=== PATIENT | male | born 1965 | race Caucasian/White ===

== ENCOUNTER 2017-02-24 17:02 | Emergency (ER) | payer MEDICARE, MEDICAID ==
[2017-02-24 17:20] VITALS: BP 137/73
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
== END 2017-02-24 18:28 | disposition home or self-care (01) ==
LOC: UCCORT 17:02
DX: S90.31XA Contusion of right foot, initial encounter (principal); W22.03XA Walked into furniture, initial encounter; Y93.9 Activity, unspecified; Y92.9 Unspecified place or not applicable
CPT/HCPCS: 99211; G0463

== ENCOUNTER 2017-03-02 12:10 | Emergency (ER) | payer MEDICARE, MEDICAID ==
[2017-03-02 13:10] VITALS: BP 122/83
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
--- NOTE | 2017-03-02 14:06 | RAD ---
INDICATION: Right shoulder pain. TECHNIQUE: 3 views of the right shoulder were obtained. FINDINGS: The bones are in normal alignment. No fracture is seen. There is mild osteoarthritic change in the glenohumeral joint. IMPRESSION: MILD OSTEOARTHRITIC CHANGE.
--- NOTE | 2017-03-02 14:11 | RAD ---
INDICATION: Right rib cage pain. COMPARISON: Comparison is made with a prior chest x-ray study from April 21, 2013. TECHNIQUE: Dual-energy PA and lateral views of the chest were obtained. FINDINGS: The heart is within normal limits in size. Mediastinal and hilar contours appear within normal limits. The lungs are underinflated. There is minimal atelectasis at the left lung base. The lungs are otherwise clear. No pleural effusion or pneumothorax is seen. There is mild pleural thickening present laterally within the right hemithorax possibly from a rib fracture. Consider rib detail films for further evaluation. IMPRESSION: MILD RIGHT PLEURAL THICKENING LATERALLY POSSIBLY FROM RIB A FRACTURE CONSIDER RIB FILMS FOR FURTHER EVALUATION.
--- NOTE | 2017-03-02 14:50 | RAD ---
INDICATION: Right rib cage pain. TECHNIQUE: 3 views of the right ribs were obtained. FINDINGS: There is a faint radiolucent line extending through the inferior aspect of the posterior lateral right sixth rib possibly representing a nondisplaced fracture. This is only seen in one view. No other fractures are seen. IMPRESSION: POSSIBLE NONDISPLACED FRACTURE OF THE RIGHT POSTEROLATERAL SIXTH RIB.
== END 2017-03-02 16:00 | disposition home or self-care (01) ==
LOC: UCCORT 12:10
DX: M25.511 Pain in right shoulder (principal); S29.8XXA Other specified injuries of thorax, initial encounter; S40.021A Contusion of right upper arm, initial encounter; X58.XXXA Exposure to other specified factors, initial encounter; Y93.9 Activity, unspecified; Y92.199 Unspecified place in other specified residential institution as the place of occurrence of the external cause; E03.9 Hypothyroidism, unspecified; I10 Essential (primary) hypertension; K21.9 Gastro-esophageal reflux disease without esophagitis; F32.9 Major depressive disorder, single episode, unspecified
CPT/HCPCS: 71020; 99212; G0463

== ENCOUNTER 2017-04-28 18:21 | Emergency (ER) | payer MEDICARE, MEDICAID ==
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
[2017-04-28 18:50] VITALS: BP 114/75
== END 2017-04-28 18:45 | disposition home or self-care (01) ==
LOC: UCCORT 18:21
DX: Z04.1 Encounter for examination and observation following transport accident (principal); F79 Unspecified intellectual disabilities
CPT/HCPCS: 99211; G0463

== ENCOUNTER 2019-12-02 21:41 | Emergency (ER) | payer MEDICARE, MEDICAID ==
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
--- OUTSIDE RECORDS SUMMARY | 2019-12-02 21:48 | XMS REPORT | Continuity of Care Document ---
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 Onset: 09/10/2018 prostate Chest pain Zack Graham M.D., Onset: 11/19/2014 [facility] Electrocardiogram abnormal Zack Graham M.D., Onset: 11/19/2014 [facility] Social History Type Date Description Comments Sex Unknown Tobacco Use Start: Unknown Never Smoked Cigarettes ETOH Use Never used alcohol Tobacco Use Start: Unknown End: Unknown Patient is a former smoker Recreational Drug Use Denies Drug Use Smoking Status Reviewed: 09/06/18 Patient is a former smoker Allergies, Adverse Reactions, Alerts Active Allergies Reaction Severity Comments Date Meningococcal Vaccines VOMITTING AND FEVER 09/10/2018 Inactive Allergies NKDA 11/12/2014 Medications Active Medications SIG Qnty Indications Ordering Provider Date Amiloride HCL 1 by mouth 90tabs Unknown 5mg Tablets every day Omeprazole 2 Tabs Via Peg 30caps Unknown 20mg Capsules bid DR [place] 1 by mouth 30tabs Unknown 15mg Tablets every night Sertraline HCL 1 by mouth 30tabs Unknown 100mg every day Tablets Divalproex Sodium 2 cap po tid Unknown 125mg Via Gtube Capsule Synthroid 1 by mouth Unknown 112mcg Tablets every day vi aG Tube Oscal 500/200 D-3 1 tab by mouth Unknown tid a day [id number] Tablets Vitamin D3 Super 1 by mouth Unknown Strength every day 2000Unit Capsules Immunizations Description No Information Available Vital Signs Date Vital Result Comment 09/29/2019 1:14pm BP Systolic 112 mmHg BP Diastolic 82 mmHg Body Temperature 96.0 F Heart Rate 66 /min Height 66 inches 5'6" Weight 149.00 lb BMI (Body Mass Index) 24.0 kg/m2 BSA (Body Surface Area) 1.76 m2 [place] body weight in kilograms 64 kg O2 % BldC Oximetry 97 % 09/10/2018 11:16am BP Systolic 110 mmHg BP Diastolic 69 mmHg Body Temperature 97.3 F Heart Rate 68 /min Respiratory Rate 16 /min Height 68 inches 5'8" Weight 145.00 lb Per paper work/ pt present in wheel chair Pain Level 0 BMI (Body Mass Index) 22.0 kg/m2 BSA (Body Surface Area) 1.78 m2 [place] body weight in kilograms 70 kg O2 % BldC Oximetry 93 % Results Test Acquired Date Facility Test Result H/L Range Note Basic Metabolic 06/06/2019 [facility] Glucose 120 mg/dL High 74-106 1 Panel [address] [place], [place] [id number] [phone] BUN 27 mg/dL High 7-18 Creatinine 1.0 mg/dL Normal 0.6-1.3 Glom Filtration Rate, Estimate >60 mL/min >60 If >60 mL/min >60 2 BUN/Creat 27.0 ratio Sodium 152 mmol/L High 136-145 Potassium 3.9 mmol/L Normal 3.5-5.1 Chloride 121 mmol/L Critical high 98-107 Carbon Dioxide 25 mmol/L Normal 21-32 Anion Gap 6 mEq/L Low 8-16 Calcium 9.3 mg/dL Normal 8.5-10.1 Basic Metabolic Panel 06/05/2019 [facility] Glucose 110 mg/dL High 74-106 [address] [place], [place] [id number] [phone] BUN 25 mg/dL High 7-18 Creatinine 1.0 mg/dL Normal 0.6-1.3 Glom Filtration Rate, Estimate >60 mL/min >60 If >60 mL/min >60 3 BUN/Creat 25.0 ratio Sodium 151 mmol/L High 136-145 Potassium 4.0 mmol/L Normal 3.5-5.1 Chloride 121 mmol/L Critical high 98-107 Carbon Dioxide 24 mmol/L Normal 21-32 Anion Gap 6 mEq/L Low 8-16 Calcium 9.0 mg/dL Normal 8.5-10.1 CBC W/Automated 06/05/2019 [facility] White Blood 9.1 K/uL Normal 3.4-10.[address] [place] [address] [phone] Red Blood Count 3.29 M/uL Low 4.20-5.80 Hemoglobin 11.9 gm/dL Low 12.8-17.0 Hematocrit 34.5 % Low 38.0-48.0 Mean Cell Volume 104.9 fl High 80.0-96.0 Mean Corpuscular HGB 36.2 pg High 27.0-33.0 Mean Corpuscular HGB Conc 34.5 g/dL Normal 31.7-36.0 Platelet Count 67 K/uL Low 155-360 Red Cell Distri Width SD 49.6 fl Normal 36-51 Red Cell Distri Width %CV 13.0 % Normal 11.6-15.8 Mean Platelet Volume 13.7 fl High 6.6-10.6 Neut% 83.6 % High 33.0-73.0 Lymph % 9.4 % Low 20.0-42.0 [place] % 6.3 % Normal 0.0-10.0 Eo% 0.0 % Normal 0.0-6.6 Bas% 0.2 % Normal 0.0-1.1 Immature Grans 0.5 % Normal 0.0-5.0 NRBC % 0.0 /100WBC < 10/ 100 WBC Neut# 7.61 K/uL High 1.8-7.0 Lymph # 0.86 K/uL Low 1.0-4.0 [place] # 0.57 K/uL Normal 0.0-0.8 Eos # 0.00 K/uL Normal 0.0-0.5 Baso # 0.02 K/uL Normal 0.0-0.1 Immature Grans Absolute 0.05 K/uL NRBC # 0.00 K/uL Lactic Acid 06/05/2019 [facility] Lactic Acid 1.4 mmol/L Normal 0.4-1.[address] [place] [address] [phone] Lab Reflex >2.0 for Sepsis? N Basic Metabolic Panel 06/05/2019 [facility] Glucose 108 mg/dL High 74-106 [address] [place], [place] [id number] [phone] BUN 25 mg/dL High 7-18 Creatinine 0.9 mg/dL Normal 0.6-1.3 Glom Filtration Rate, Estimate >60 mL/min >60 If >60 mL/min >60 4 BUN/Creat 27.7 ratio Sodium 151 mmol/L High 136-145 Potassium 4.4 mmol/L 3.5-5.1 Chloride 122 mmol/L Critical high 98-107 Carbon Dioxide 25 mmol/L Normal 21-32 Anion Gap 4 mEq/L Low 8-16 Calcium 8.3 mg/dL Low 8.5-10.1 Lactic Acid 06/05/2019 [facility] Lactic Acid 2.7 mmol/L Critical 0.4-1.9 [address] [place] [address] [phone] Lab Reflex >2.0 for Sepsis? N Lactic Acid 06/04/2019 [facility] Lactic Acid 2.9 mmol/L Critical 0.4-1.9 [address] [place] [address] [phone] Lab Reflex >2.0 for Sepsis? Y Laboratory 06/04/2019 [facility] Lactic 2.5 mmol/L Critical 0.4-1.9 test finding [address] [place] [address] [phone] Ua RFX Micro & 06/04/2019 [facility] Urine YELLOW Yellow Culture II [address] [place] [address] [phone] Urine Clarity CLEAR Clear Urine Glucose - Dipstick NEGATIVE mg/dL Negative Urine Bilirubin - Dipstick NEGATIVE Negative Urine Ketone NEGATIVE mg/dL Negative Urine Specific [place] 1.010 Normal 1.010-1.030 Urine Blood NEGATIVE 0-2 Urine PH 7.5 Normal 6.5-7.5 Urine Protein - Dipstick NEGATIVE mg/dL Negative Urine Urobilinogen - Dipstick 0.2 E.U./dL Normal 0.2-1.0 Urine Nitrite - Dipstick NEGATIVE Negative Urine Leuk Esterase NEGATIVE Negative Source: URINE, CLEAN CAT <SEE NOTE> 5 Comprehensive 06/04/2019 [facility] Glucose 86 mg/dL Normal 74-106 Metabolic Panel [address] [place] [address] [phone] BUN 36 mg/dL High 7-18 Creatinine 1.2 mg/dL Normal 0.6-1.3 Glom Filtration Rate, Estimate >60 mL/min >60 If >60 mL/min >60 6 BUN/Creat 30.0 ratio Sodium 141 mmol/L Normal 136-145 Potassium 3.6 mmol/L Normal 3.5-5.1 Chloride 108 mmol/L High 98-107 Carbon Dioxide 24 mmol/L Normal 21-32 Anion Gap 9 mEq/L Normal 8-16 Calcium 9.1 mg/dL Normal 8.5-10.1 Total Protein 6.6 g/dL Normal 6.4-8.2 Albumin 2.9 g/dL Low 3.4-5.0 Globulin 3.7 g/dL Normal 1.9-4.3 Alb/Glob 0.8 ratio Bilirubin,Total 0.9 mg/dL Normal 0.2-1.0 Sgot/Ast 29 U/L Normal 15-37 SGPT/Alt 37 U/L Normal 12-78 Alkaline Phosphatase 121 U/L High 45-117 Blood Culture 06/04/2019 [facility] Blood Culture NO GROWTH: FINAL [address] Aerobic <SEE NOTE> [place] [address] [phone] Blood Culture Anaerobic NO GROWTH: FINAL <SEE NOTE> 8 Blood Culture 06/04/2019 [facility] Blood Culture NO GROWTH: FINAL [address] Aerobic <SEE NOTE> [place] [address] [phone] Blood Culture Anaerobic NO GROWTH: FINAL <SEE NOTE> 10 1 SEPSIS / PNEUMONIA 2 Note: Persistent reduction for 3 months or more in an eGFR <60 mL/min/1.73 m2 defines CKD. Patients with eGFR values >/=60 mL/min/1.73 m2 may also have CKD if evidence of persistent proteinuria is present. The original MDRD equation for estimated GFR is not valid for patients less than 18 years of age. Additional information may be found at [email or web address]. 3 Note: Persistent reduction for 3 months or more in an eGFR <60 mL/min/1.73 m2 defines CKD. Patients with eGFR values >/=60 mL/min/1.73 m2 may also have CKD if evidence of persistent proteinuria is present. The original MDRD equation for estimated GFR is not valid for patients less than 18 years of age. Additional information may be found at [email or web address]. 4 Note: Persistent reduction for 3 months or more in an eGFR <60 mL/min/1.73 m2 defines CKD. Patients with eGFR values >/=60 mL/min/1.73 m2 may also have CKD if evidence of persistent proteinuria is present. The original MDRD equation for estimated GFR is not valid for patients less than 18 years of age. Additional information may be found at [email or web address]. 5 URINE, CLEAN CATCH 6 Note: Persistent reduction for 3 months or more in an eGFR <60 mL/min/1.73 m2 defines CKD. Patients with eGFR values >/=60 mL/min/1.73 m2 may also have CKD if evidence of persistent proteinuria is present. The original MDRD equation for estimated GFR is not valid for patients less than 18 years of age. Additional information may be found at [email or web address]. 7 NO GROWTH: FINAL REPORT 8 NO GROWTH: FINAL REPORT 9 NO GROWTH: FINAL REPORT 10 NO GROWTH: FINAL REPORT Procedures Date Code Description Status 07/30/2019 94019 EKG Interpretation And Report Only Completed Medical Devices Description No Information Available Encounters Type Date Location Provider Dx Diagnosis Office Visit 09/29/2019 Orthopaedic Office Maris Baird M25.561 Pain in right 1:00p S., [facility] knee Assessments Date Code Description Provider 09/29/2019 M25.561 Pain in right knee Maris Baird, [facility] 07/30/2019 F63.81 Intermittent explosive disorder Zack Graham M.D., [facility] 06/06/2019 J96.01 Acute respiratory failure with Diana Ford MD hypoxia 06/06/2019 J18.1 Lobar pneumonia, unspecified organism Diana Ford MD 06/06/2019 A41.9 Sepsis, unspecified organism Diana Ford MD 06/06/2019 E87.0 Hyperosmolality and hypernatremia Diana Ford MD 06/05/2019 J96.01 Acute respiratory failure with Holger Leyva FNP hypoxia 06/05/2019 J18.1 Lobar pneumonia, unspecified organism Holger Leyva FNP 06/05/2019 A41.9 Sepsis, unspecified organism Holger Leyva FNP 06/05/2019 E87.0 Hyperosmolality and hypernatremia Holger Leyva FNP 06/04/2019 J96.01 Acute respiratory failure with Holger Leyva FNP hypoxia 06/04/2019 J18.1 Lobar pneumonia, unspecified organism Holger Leyva FNP 06/04/2019 A41.9 Sepsis, unspecified organism Holger Leyva FNP 06/04/2019 Z87.01 Personal history of pneumonia Holger Leyva FNP (recurrent) Plan of Treatment No Information Available Functional Status Functional Condition Comment Date Status Peg Tube Active Dependent with all ADL's Active Mental Status Description No Information Available Referrals Description No Information Available
[2019-12-02 21:50] VITALS: BP 154/86
--- NOTE | 2019-12-02 22:04 | UC ---
Minor Trauma HPI - HPI Summary HPI Summary: 54 yo male in [place] injured his thoracic back when he feel against a dresser when questioned he denies pain he is eager to go to work tomorrow hx osteoporosis in a wheel chair he has been acting his normal self since fall - History of Current Complaint Chief Complaint: UCBackPain Stated Complaint: PT FELL BACK PAIN Time Seen by Provider: 12/02/19 21:56 Hx Obtained From: Patient, Family/Manager Sign, Medical Records Onset/Duration: Sudden Onset, Lasting Minutes Onset Of Pain: Immediate Severity Initially: Mild Severity Currently: None Pain Intensity: 0 Pain Scale Used: 0-10 Numeric Mechanism Of Injury: Fall From A Standing Position Aggravating Factor(s): Nothing Alleviating Factor(s): Nothing Associated Signs And Symptoms: Negative: Loss Of Consciousness, Ecchymosis, Swelling Related History: Negative: Similar Episode Body - Head: 1 - no midline darian tenderness with palpation/no chest pain with rib compression - Allergies/Home Medications Allergies/Adverse Reactions: Allergies Allergy/AdvReac Type Severity Reaction Status Date / Time No Known Allergies Allergy Verified 12/02/19 21:49 Home Medications: Home Medications Alendronate Sodium [Fosamax-] 70 mg PO WEEKLY 08/08/17 [History Confirmed ] Calcium [Oyster-Nick 500] 500 mg PO 08/08/17 [History] Cholecalciferol (Vitamin D3) [D3-1000] 1,000 unit PO 08/08/17 [History] Divalproex Sprinkle CAP* [Depakote Sprinkle CAP*] 250 mg PO 08/08/17 [History] Levothyroxine TAB* [Synthroid TAB*] 100 mcg PO DAILY 08/08/17 [History Confirmed 08/08/17] Metoclopramide LIQ* [Reglan LIQ*] 5 mg PO QID 08/08/17 [History Confirmed ] Nutritional Supplements [Thrivacin 30] 1 liq PO 08/08/17 [History] Omeprazole CAP (NF) [Prilosec CAP* 20 MG] 20 mg PO DAILY 08/08/17 [History Confirmed 08/08/17] Sertraline* [Zoloft*] 150 mg PO DAILY 08/08/17 [History Confirmed 08/08/17] aMILoride TAB* [Midamor TAB*] 5 mg PO DAILY 08/08/17 [History Confirmed 08/08/17 ] PMH/Surg Hx/FS Hx/Imm Hx Previously Healthy: Yes - MR - Surgical History Surgical History: Yes Surgery Procedure, Year, and Place: g tube, PEG tube; tonsilectomy as child; - Family History Known Family History: Positive: Unknown Family History: patient unaware of FH - Social History Alcohol Use: None Substance Use Type: None Smoking Status (MU): Never Smoked Tobacco - Immunization History Most Recent Tetanus Shot: utd Review of Systems All Other Systems Reviewed And Are Negative: Yes Constitutional: Positive: Negative Skin: Positive: Negative Eyes: Positive: Negative ENT: Positive: Negative Respiratory: Positive: Negative Cardiovascular: Positive: Negative Gastrointestinal: Positive: Negative Genitourinary: Positive: Negative Motor: Positive: Negative Neurovascular: Positive: Negative Musculoskeletal: Positive: Negative Neurological/Mental Status: Positive: Negative Psychological: Positive: Negative Physical Exam Triage Information Reviewed: Yes Appearance: Well-Appearing, No Pain Distress Vital Signs: Initial Vital Signs Temp 97.6 F 12/02/19 21:47 Pulse 70 12/02/19 21:47 Resp 16 12/02/19 21:47 BP 154/86 12/02/19 21:47 Pulse Ox 98 12/02/19 21:47 Vital Signs Reviewed: Yes Eyes: Positive: Conjunctiva Clear ENT: Negative: Nasal congestion, Nasal drainage, Muffled voice, Hoarse voice Dental: Positive: Other: - poor dentition Respiratory: Positive: Chest non-tender, No respiratory distress, No accessory muscle use, Rhonchi Cardiovascular: Positive: RRR Musculoskeletal: Positive: Other: - 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, 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 Neurological: Positive: Alert Psychological Exam: Normal Skin Exam: Other - faint contusion thoracic back Minor Trauma Course/Dx - Differential Dx/Diagnosis Provider Diagnosis: Back contusion Discharge ED - Sign-Out/Discharge Documenting (check all that apply): Patient Departure All imaging exams completed and their final reports reviewed: No Studies - Discharge Plan Condition: Stable Disposition: HOME Patient Education Materials: Contusion in Adults (ED) Referrals: Negrete,Joseph, MD [Primary Care Provider] - 1 Week (if not better) - Billing Disposition and Condition Condition: STABLE Disposition: Home
== END 2019-12-02 22:07 | disposition home or self-care (01) ==
LOC: UCCORT 21:41
DX: S20.229A Contusion of unspecified back wall of thorax, initial encounter (principal); M81.0 Age-related osteoporosis without current pathological fracture; Z99.3 Dependence on wheelchair; X58.XXXA Exposure to other specified factors, initial encounter; Y92.9 Unspecified place or not applicable
CPT/HCPCS: 99211; G0463